=== PATIENT | female | born 1985 ===

== ENCOUNTER 2018-07-17 02:23 | Emergency (ER) | payer MEDICAID ==
[2018-07-17 02:38] VITALS: BMI 32.5
[2018-07-17 02:44] VITALS: BP 118/64; PULSE 106; RESP 18; TEMP 98.6; O2SAT 99
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
== END 2018-07-17 03:55 | disposition home or self-care (01) ==
LOC: H.ER 02:23
DX: F41.9 Anxiety disorder, unspecified (principal); Z13.31 Encounter for screening for depression; K50.90 Crohn's disease, unspecified, without complications